=== PATIENT | female | born 1995 | race Caucasian/White ===

== ENCOUNTER 2017-01-25 09:33 | Emergency (ER) | payer SELFPAY ==
--- NOTE | 2017-01-26 09:22 | ER ---
ADMIT: 01/25/2017 RM/LOC: ER [facility] MR#: [id number] [address] [id number] DENISE ARREGUIN [address] [id number] Emergency Room Report SEX: F AGE: 21 : 1995 DATE: 01/25/2017 ADDENDUM: CHIEF COMPLAINT: Left mid abdominal pain. HISTORY OF PRESENT ILLNESS: This is a 21-year-old, who started having this pain just for about a day. She said it was also painful during intercourse. She denies really and constipation, but her bowel movement was yesterday. She said she always just has to push a little bit harder to have. COURSE IN THE EMERGENCY ROOM: I did a CBC, CMP, lipase, urine, and urine preg. The results of that, urine is normal. CMP is normal except for albumin slightly low at 3.4. test is negative. CBC is normal. At this time, I am going to discharge patient home, having her push fluids. Use Motrin or Tylenol for pain. If she has difficulty with bowel movements, I am going to have her use MiraLax for a few days until she has a good bowel movement. Having her followup with PCP if worsen. STEVE Bravo / Rafi Andrade MD / modl JOB #: [id number] CC: Rafi Andrade MD, Attending Physician
== END 2017-01-25 11:57 | disposition home or self-care (01) ==
LOC: ER 09:33
DX: R10.9 Unspecified abdominal pain (principal); F17.210 Nicotine dependence, cigarettes, uncomplicated; Z88.1 Allergy status to other antibiotic agents

== ENCOUNTER 2017-04-07 20:49 | Emergency (ER) | payer SELFPAY ==
--- NOTE | 2017-04-08 19:04 | ER ---
ADMIT: 04/07/2017 RM/LOC: ER [facility] MR#: [id number] [facility] [id number] DENISE ARREGUIN [address] [address] Emergency Room Report SEX: F AGE: 21 : 1995 DATE: 04/07/2017 The patient is a 21-year-old female, complaining of left wrist laceration when she went through a window tonight. No other injuries. Exam remarkable for nontoxic, acutely uncomfortable female with 5 cm left volar wrist laceration, no foreign bodies identified. Wound anesthetized with Xylocaine, thoroughly cleansed, rinsed and explored, closed with eight 4-0 Prolene, bacitracin, and dressing. Tdap 0.5 mL IM. Follow up with Dr. Alberts in 7 to 10 days. Itz Najera MD/ rossy JOB #: [id number] CC: Itz Najera MD, Attending Physician Alma Alberts MD, Family Physician Alma Alberts MD
== END 2017-04-07 22:00 | disposition home or self-care (01) ==
LOC: ER 20:49
PROC: 0HQEXZZ Repair Left Lower Arm Skin, External Approach (ICD-10-PCS; principal; 2017-04-07)
DX: S61.512A Laceration without foreign body of left wrist, initial encounter (principal); F17.210 Nicotine dependence, cigarettes, uncomplicated; Z86.73 Personal history of transient ischemic attack (TIA), and cerebral infarction without residual deficits; Z88.1 Allergy status to other antibiotic agents; W25.XXXA Contact with sharp glass, initial encounter; Y92.009 Unspecified place in unspecified non-institutional (private) residence as the place of occurrence of the external cause